=== PATIENT | male | born 1980 | race Caucasian/White ===

== ENCOUNTER 2023-10-05 01:19 | Observation (INO) | payer OTHER ==
[2023-10-05 01:58] LABS: BASOPHILS % (AUTO) 0.4 %; EOSINOPHILS # (AUTO) 0.2 10^3/uL (0.0-0.7); HGB - HEMOGLOBIN 14.4 g/dL (14.0-18.0); LYMPHOCYTES # (AUTO) 1.6 10^3/uL (1.5-3.5); LYMPHOCYTES % (AUTO) 15.5 %; MEAN CORPUSCULAR HEMOGLOBIN 26.7 pg (27.0-31.0); MEAN CORPUSCULAR VOLUME 83.5 fL (80.0-94.0); MEAN PLATELET VOLUME 9.8 fL (7.4-11.4); MONOCYTES # (AUTO) 0.9 10^3/uL (0.0-1.0); MONOCYTES % (AUTO) 8.9 %; NEUTROPHILS # (AUTO) 7.6 10^3/uL (1.5-6.6); NEUTROPHILS % (AUTO) 72.8 %; PLT - PLATELET COUNT 225 10^3/uL (130-450); RED BLOOD COUNT 5.39 10^6/uL (4.70-6.10); RED CELL DISTRIBUTION WIDTH 14.2 % (12.0-15.0); WHITE BLOOD COUNT 10.5 x10^3/uL (4.8-10.8)
[2023-10-05 02:07] LABS: RAPID STREP SCREEN Negative (Negative)
[2023-10-05 02:13] LABS: BILIRUBIN,URINE NEGATIVE (NEGATIVE); GLUCOSE, URINE (UA) NEGATIVE (NEGATIVE); KETONES,URINE (UA) 15 mg/dL (NEGATIVE); LEUKOCYTE ESTERASE, URINE NEGATIVE (NEGATIVE); NITRITE,URINE NEGATIVE (NEGATIVE); OCCULT BLOOD,URINE NEGATIVE (NEGATIVE); PH,URINE 5.5 PH (5.0-7.5); PROTEIN,URINE NEGATIVE (NEGATIVE); UROBILINOGEN,URINE 0.2 (NORMAL) E.U./dL (NORMAL)
[2023-10-05 02:15] LABS: CLARITY,URINE CLEAR (CLEAR)
--- NOTE | 2023-10-05 02:17 | ED Physician Documentation ---
PD HPI ABD PAIN - Stated complaint Stated Complaint: ABD PX/SORE THROAT - Chief complaint Chief Complaint: Heent - History obtained from History obtained from: Patient - Additional information Additional information: HPI from patient. Patient complains of abdominal pain since yesterday, gradual onset without an inciting event. The pain was initially periumbilical, but it has spread to involve the lower abdomen, more notable on the right lower quadrant than left. The pain is worse with movement, palpation. He denies fever. He denies history of similar symptoms. He has never had any abdominal surgery. He has had some nausea but no vomiting. Denies diarrhea, constipation. He also notes sore throat with odynphagia which also began yesterday and has been steadily progressive. Review of Systems Constitutional: denies: Fever, Chills, Sweats Nose: denies: Congestion Throat: reports: Sore throat Cardiac: reports: Reviewed and negative Respiratory: reports: Reviewed and negative GI: reports: Abdominal Pain, Nausea. denies: Vomiting, Constipation, Diarrhea, Hematemesis, Bloody / black stool : denies: Dysuria, Frequency Musculoskeletal: denies: Back pain PD PAST MEDICAL HISTORY - Past Medical History Past Medical History: No - Past Surgical History Past Surgical History: Yes HEENT: Tonsil/Adenoidectomy - Present Medications Home Medications: Ambulatory Orders Medication Instructions Recorded Confirmed No Known Home Medications 10/05/23 10/05/23 - Allergies Allergies/Adverse Reactions: Allergies Allergy/AdvReac Type Severity Reaction Status Date / Time No Known Drug Allergies Allergy Verified 10/05/23 01:29 - Social History Does the pt smoke?: No Smoking Status: Never smoker Does the pt drink ETOH?: No Does the pt have substance abuse?: No - Immunizations Immunizations are current?: Yes - POLST Patient has POLST: No PD ED PE NORMAL - Vitals Vital signs reviewed: Yes - General General: Alert and oriented X 3, No acute distress, Well developed/nourished - HEENT HEENT: Moist mucous membranes - Cardiac Cardiac: RRR, No murmur - Respiratory Respiratory: No respiratory distress, Clear bilaterally - Abdomen Abdomen: Soft, Non distended PD ED PE EXPANDED - Abdomen Abdomen: Tender to palpation (TTP periumbilicus and across lower abdomen with voluntary guarding, no rebound) Results - Vitals Vitals: Vital Signs - 24 hr 10/05/23 10/05/23 01:25 04:15 Temperature 37.2 C Heart Rate 101 H 99 Respiratory 16 16 Rate Blood Pressure 176/106 H 175/104 H O2 Saturation 100 96 Oxygen O2 Source Room air - Labs Labs: Laboratory Tests 10/05/23 10/05/23 10/05/23 01:30 01:35 01:45 WBC 10.5 RBC 5.39 Hgb 14.4 Hct 45.0 MCV 83.5 MCH 26.7 L MCHC 32.0 RDW 14.2 Plt Count 225 MPV 9.8 Neut # (Auto) 7.6 H Lymph # (Auto) 1.6 [place] # (Auto) 0.9 Eos # (Auto) 0.2 Baso # (Auto) 0.0 Absolute Nucleated RBC 0.00 Nucleated RBC % 0.0 Sodium Potassium Chloride Carbon Dioxide Anion Gap BUN Creatinine Estimated GFR (MDRD) Glucose Calcium Total Bilirubin AST ALT Alkaline Phosphatase Total Protein Albumin Globulin Albumin/Globulin Ratio Lipase Urine Color YELLOW Urine Clarity CLEAR Urine pH 5.5 Ur Specific [place] 1.025 Urine Protein NEGATIVE Urine Glucose (UA) NEGATIVE Urine Ketones 15 H Urine Occult Blood NEGATIVE Urine Nitrite NEGATIVE Urine Bilirubin NEGATIVE Urine Urobilinogen 0.2 (NORMAL) Ur Leukocyte Esterase NEGATIVE Ur Microscopic Review NOT INDICATED Urine Culture Comments NOT INDICATED Group A Strep Rapid Negative 10/05/23 01:45 WBC RBC Hgb Hct MCV MCH MCHC RDW Plt Count MPV Neut # (Auto) Lymph # (Auto) [place] # (Auto) Eos # (Auto) Baso # (Auto) Absolute Nucleated RBC Nucleated RBC % Sodium 137 Potassium 3.7 Chloride 102 Carbon Dioxide 27 Anion Gap 8.0 BUN 16 Creatinine 1.1 Estimated GFR (MDRD) 72 L Glucose 147 H Calcium 9.5 Total Bilirubin 0.7 AST 26 ALT 45 Alkaline Phosphatase 76 Total Protein 7.0 Albumin 4.5 Globulin 2.5 Albumin/Globulin Ratio 1.8 Lipase 18 Urine Color Urine Clarity Urine pH Ur Specific [place] Urine Protein Urine Glucose (UA) Urine Ketones Urine Occult Blood Urine Nitrite Urine Bilirubin Urine Urobilinogen Ur Leukocyte Esterase Ur Microscopic Review Urine Culture Comments Group A Strep Rapid - Rads (name of study) CT A/P with IV contrast Relevant Findings:: Prelim report reviewed, See rad report PD Medical Decision Making - ED course Complexity details: reviewed results, re-evaluated patient, considered differential, d/w patient ED course: Unremarkable CBC, ER abdominal panel. Rapid strep test is negative. CT of the abdomen/pelvis is notable for diverticulitis of proximal sigmoid colon with surrounding phlegmon, no abscess. Radiologist makes note of also "possible microperforation may be present." Radiologist notes "normal appendix". Although the patient is in no apparent distress both on my initial exam as well as reevaluation after the tests are resulted, he does have a moderate amount of tenderness to palpation in the periumbilical area as well as across the lower abdomen. I discussed this case including the test results with Dr. Hicks (on-call surgeon for [facility]). He recommends admit to medicine service and surgery can be consulted. D/W [facility] who will admit to medical service [facility]. Patient given IV toradol, cipro, and flagyl in ED. Departure - Departure Disposition: ED Place in Observation Clinical Impression: Diverticulitis of gastrointestinal tract Condition: Good
[2023-10-05] MEDS ORDERED: iohexoL-300 100 ML VIAL ONE (02:46)
[2023-10-05 02:47] LABS: ALBUMIN 4.5 g/dL (3.2-5.5); ALBUMIN/GLOBULIN RATIO 1.8 (1.0-2.2); BILIRUBIN,TOTAL 0.7 mg/dL (0.2-1.0); CALCIUM 9.5 mg/dL (8.5-10.3); CREATININE 1.1 mg/dL (0.6-1.3); POTASSIUM 3.7 mmol/L (3.5-4.5)
[2023-10-05] MEDS: iohexoL-300 100 ML VIAL IVP ONE (03:09)
--- NOTE | 2023-10-05 04:09 | HISTORY & PHYSICAL EXAMINATION ---
Chief Complaint - Chief Complaint Chief Complaint: Abdo pain History of Present Illness - Admitted From Admitted From:: ER - History Obtained From Records Reviewed: Yes History obtained from: Pt, staff, chart Exam Limitations: Virtual exam - History of Present Illness HPI Comment/Other: H&P was conducted via video remotely, using Access Cart. [place] in [place] Physician [place] in [place]. No one is at bedside. 43 yo M with no PMH presented to the ER with c/o 2 day h/o abdominal pain. Pt stayed at cabin with family this weekend for Mother's Day. His family members had URI symptoms, cough. Yesterday AM, he noticed abdominal pain around his belly button, starting gradually, then increased and radiated to lower abdomen, +pressure. Abdo pain worse with having BM or urinating, +Nausea, no vomiting. +BM: normal. No h/o pain like this. No h/o abdominal pain. +subj F/C. +sore throat with odynophagia. No CP/SOB/cough. In the ER, Glc 147, Throat: Strep cx neg CT Abdo: Acute Diverticulitis proximal sigmoid with surrounding phlegmon, possible microperforation ER Provider D/W Dr. Hicks, General Surgery, who recommends admit to medicine service and surgery can be consulted. Pt was given IVF, Toradol, Cipro/Flagyl in the ER. History - Past Medical History MRSA Hx?: No - Past Surgical History HEENT: reports: Tonsil/Adenoidectomy - POLST Patient has POLST: No Meds/Allgy - Home Medications Home Medications: Ambulatory Orders Medication Instructions Recorded Confirmed No Known Home Medications 10/05/23 10/05/23 - Allergies Allergies/Adverse Reactions: Allergies Allergy/AdvReac Type Severity Reaction Status Date / Time No Known Drug Allergies Allergy Verified 10/05/23 01:29 Review of Systems - All Other Systems All Other Systems: reports: Reviewed and negative Exam - Vital Signs Reviewed Vital Signs: Yes Vital Signs: Vital Signs x48h Temp Pulse Resp BP Pulse Ox 10/05/23 01:25 37.2 C 101 H 16 176/106 H 100 - Physical Exam General Appearance: positive: No acute distress, Alert Eyes Bilateral: positive: EOMI, No scleral icterus Respiratory: positive: Other (Access cart stethoscope not working; per ER Provider: CTA B/L) Cardiovascular: positive: Other (Access cart stethoscope not working; per ER Provider: RRR, no murmurs) Abdomen: positive: Other (per ER Provider: Tender to palpation (TTP periumbilicus and across lower abdomen with voluntary guarding, no rebound)) Extremities: positive: Other (per ER Provider: moves all extrem, no edema) Conclusion/Plan - Problem List (1) Diverticulitis of gastrointestinal tract Conclusion/Plan: Acute Diverticulitis Abdominal Pain Nausea -CT Abdo: Acute Diverticulitis proximal sigmoid with surrounding phlegmon, possible microperforation -ER Provider D/W Dr. Hicks, General Surgery, who recommends admit to medicine service and surgery can be consulted. -Pt was given IVF, Toradol, Cipro/Flagyl in the ER. -admit to Obs/MedSurg -IVF -clear liquid diet; advance as tolerated -anti-emetics PRN -continue Cipro/Flagyl -pain meds PRN -mgmt per General Surgery Odynophagia Sore throat -Throat: Strep cx neg -Resp panel ordered Hyperglycemia -Glc 147 -check Hgba1c VTE Prophylaxis: Lovenox Code Status: Full Code ~Martha Gonsales MD Hospitalist - Lab Results Lab results reviewed: Yes Fish Bones: 10/05/23 01:45 10/05/23 01:45
[2023-10-05] MEDS: KETOROLAC 30 MG/ML VIAL IVP STA (04:21)
[2023-10-05] MEDS: SODIUM CHLORIDE 0.9% 1,000 ML IV STA (04:22)
[2023-10-05] MEDS: CIPROFLOXACIN 400 MG/200 ML 400 MG/200 ML BAG IV STA (04:25)
[2023-10-05] MEDS ORDERED: ONDANSETRON ODT 4 MG TABLET TL PRN (04:39)
[2023-10-05] MEDS ORDERED: SODIUM CHLORIDE FLUSH 0.9% 10 ML SYRINGE IVP PRN (04:39)
[2023-10-05] MEDS ORDERED: ONDANSETRON 4 MG/2 ML VIAL IVP PRN (04:39)
[2023-10-05] MEDS ORDERED: LIDOCAINE VISCOUS 2% 15 ML UDC MM PRN (04:49)
[2023-10-05] MEDS: metroNIDAZOLE 500 MG/100 ML 500 MG/100 ML BAG IV ONE (05:28)
[2023-10-05 06:00] LABS: BASOPHILS % (AUTO) 0.3 %; EOSINOPHILS # (AUTO) 0.3 10^3/uL (0.0-0.7); EOSINOPHILS % (AUTO) 2.6 %; HCT - HEMATOCRIT 43.6 % (42.0-52.0); LYMPHOCYTES # (AUTO) 1.6 10^3/uL (1.5-3.5); MEAN CORPUSCULAR HEMOGLOBIN 26.8 pg (27.0-31.0); MEAN CORPUSCULAR HGB CONC 32.1 g/dL (32.0-36.0); MEAN CORPUSCULAR VOLUME 83.5 fL (80.0-94.0); MEAN PLATELET VOLUME 10.1 fL (7.4-11.4); MONOCYTES % (AUTO) 10.1 %; NEUTROPHILS # (AUTO) 6.6 10^3/uL (1.5-6.6); NEUTROPHILS % (AUTO) 69.7 %; PLT - PLATELET COUNT 227 10^3/uL (130-450); RED BLOOD COUNT 5.22 10^6/uL (4.70-6.10); RED CELL DISTRIBUTION WIDTH 14.1 % (12.0-15.0); WHITE BLOOD COUNT 9.5 x10^3/uL (4.8-10.8)
[2023-10-05 06:22] LABS: ALBUMIN 4.2 g/dL (3.2-5.5); ALBUMIN/GLOBULIN RATIO 1.4 (1.0-2.2); BILIRUBIN,TOTAL 0.7 mg/dL (0.2-1.0); CALCIUM 9.1 mg/dL (8.5-10.3); POTASSIUM 3.5 mmol/L (3.5-4.5); TOTAL PROTEIN 7.2 g/dL (6.4-8.9)
[2023-10-05] MEDS: LACTATED RINGERS 1,000 ML IV SCH (06:22)
[2023-10-05 06:32] LABS: B. PARAPERTUSSIS- RESP PCR PAN NOT DETECTED; B. PERTUSSIS- RESP PCR PANEL NOT DETECTED; C. PNEUMONIAE- RESP PCR PANEL NOT DETECTED; CORONAVIRUS 229E-RESP PCR NOT DETECTED; CORONAVIRUS HKU1-RESP PCR NOT DETECTED; CORONAVIRUS NL63-RESP PCR NOT DETECTED; CORONAVIRUS OC43-RESP PCR NOT DETECTED; HUMAN METAPNEUMOVIRUS NOT DETECTED; INFLUENZA A- RESP PCR PANEL NOT DETECTED; INFLUENZA B - RESP PCR PANEL NOT DETECTED; M. PNEUMONIAE- RESP PCR PANEL NOT DETECTED; PARAINFLUENZA VIRUS 1 NOT DETECTED; PARAINFLUENZA VIRUS 2 NOT DETECTED; PARAINFLUENZA VIRUS 3 NOT DETECTED; PARAINFLUENZA VIRUS 4 NOT DETECTED; RHINOVIRUS/ENTEROVIRUS NOT DETECTED; RSV- RESP PCR PANEL NOT DETECTED; SARS-CoV-2 -RESP PCR PANEL NOT DETECTED
--- NOTE | 2023-10-05 07:16 | CT Report ---
PROCEDURE: Abdomen/Pelvis W INDICATIONS: abd. pain CONTRAST: 100 ML OMNI 300 TECHNIQUE: After the administration of intravenous contrast, a CT scan of the abdomen and pelvis was performed. Images were recorded and evaluated at appropriate window settings. Reformats: coronal and sagittal. F or radiation dose reduction, the following was used: automated exposure control, adjustment of mA and /or kV according to patient size. COMPARISON: None. FINDINGS: Image quality: Diagnostic. Lower chest: Unremarkable. Liver: No solid mass. Very mild diffuse hepatic steatosis. Gallbladder: No radiopaque stones or wall thickening. Biliary tree: No intrahepatic or extrahepatic dilation, accounting for age. Spleen: No splenomegaly. Pancreas: No pancreatic ductal dilation. Adrenals: No adrenal nodule. Kidneys and ureters: No hydronephrosis. No renal cystic lesion which requires follow up. No solid mas s. Stomach, bowel and peritoneum: Sigmoid diverticulosis with associated diverticulitis. There is bowel wall thickening and there is inflammatory change in the subjacent fat. There may be very early phlegm on formation. Question tiny amount of subjacent air suggesting possible minimal changes of microperfo ration. No abscess. Lymph nodes: No central or retroperitoneal adenopathy. Vessels: No infrarenal aortic aneurysm. Patent portal vein. PELVIS Reproductive organs: Unremarkable. Bladder: No abnormal wall thickening, accounting for underdistention. Pelvic lymph nodes: No pelvic adenopathy by size criteria. Bones: No aggressive osseous abnormality. Other: No significant ventral or inguinal hernia. IMPRESSION: 1. Acute sigmoid diverticulitis with questionable microperforation and question of very early phlegmo n formation. Comment: Recommend direct visualization utilizing colonoscopy after acute symptomatology resolves to exclude underlying lesion Findings are concordant with preliminary interpretation provided by [facility]. Reviewed by: Eduardo Donaldson MD on 10/05/2023 7:14 AM PDT Approved by: Eduardo Donaldson MD on 10/05/2023 7:14 AM PDT Station ID: [id number]
[2023-10-05] MEDS: ENOXAPARIN 40 MG/0.4 ML SYRINGE SUBQ SCH (09:23)
[2023-10-05] MEDS: SODIUM CHLORIDE FLUSH 0.9% 10 ML SYRINGE IVP SCH (09:23)
[2023-10-05] MEDS: LIDOCAINE VISCOUS 2% 100 ML BOTTLE MM PRN (09:27)
--- NOTE | 2023-10-05 09:54 | PHARMACY PROGRESS NOTE ---
- Best Possible Medication History Admit Date and Time: 10/05/23 0439 Processed by: Nursing Medications reviewed in ED?: Yes Medication History completed: Yes Patient Interview: Completed As the person ultimately responsible for medication therapy, providers are able to order a medication from an existing home medication list in [facility] via the "Reconcile Routine" prior to Confirmation of that medication by legal support specialist. Such practice is discouraged except when the physician, in their clinical judgment, deems that a medical need exists for a medication without regard to previous use.
[2023-10-05 09:57] LABS: ESTIMATED AVERAGE GLUCOSE 120 mg/dL (70-100); HEMOGLOBIN A1c% 5.8 % (4.27-6.07)
[2023-10-05] MEDS: metroNIDAZOLE 500 MG/100 ML 500 MG/100 ML BAG IV SCH (12:04)
[2023-10-05] MEDS: BENZOCAINE/MENTHOL LOZENGE MM PRN (14:00)
[2023-10-05] MEDS: CIPROFLOXACIN 400 MG/200 ML 400 MG/200 ML BAG IV SCH (16:13)
[2023-10-05] MEDS: oxyCODONE 5 MG TABLET PO PRN (16:20)
[2023-10-06] MEDS: ACETAMINOPHEN 325 MG TABLET PO PRN (01:13)
[2023-10-06] MEDS: hydrALAZINE INJ 20 MG/ML VIAL IVP PRN (01:14)
[2023-10-06] MEDS: PHENOL THROAT SPRAY 177 ML MM PRN (01:38)
[2023-10-06 05:36] LABS: BASOPHILS % (AUTO) 0.5 %; EOSINOPHILS # (AUTO) 0.2 10^3/uL (0.0-0.7); EOSINOPHILS % (AUTO) 2.6 %; HCT - HEMATOCRIT 42.8 % (42.0-52.0); HGB - HEMOGLOBIN 13.7 g/dL (14.0-18.0); LYMPHOCYTES # (AUTO) 1.5 10^3/uL (1.5-3.5); LYMPHOCYTES % (AUTO) 19.8 %; MEAN CORPUSCULAR HEMOGLOBIN 26.7 pg (27.0-31.0); MEAN CORPUSCULAR VOLUME 83.3 fL (80.0-94.0); MONOCYTES % (AUTO) 12.3 %; NEUTROPHILS % (AUTO) 64.4 %; PLT - PLATELET COUNT 216 10^3/uL (130-450); RED BLOOD COUNT 5.14 10^6/uL (4.70-6.10); WHITE BLOOD COUNT 7.7 x10^3/uL (4.8-10.8)
[2023-10-06 05:55] LABS: ALBUMIN 3.9 g/dL (3.2-5.5); ALBUMIN/GLOBULIN RATIO 1.3 (1.0-2.2); BILIRUBIN,TOTAL 0.8 mg/dL (0.2-1.0); CALCIUM 8.8 mg/dL (8.5-10.3); CREATININE 0.9 mg/dL (0.6-1.3); POTASSIUM 3.7 mmol/L (3.5-4.5); TOTAL PROTEIN 6.9 g/dL (6.4-8.9)
--- NOTE | 2023-10-06 09:05 | PROVIDER PROGRESS NOTE ---
Assessment/Plan - Problem List (1) Diverticulitis of gastrointestinal tract Assessment/Plan: symptom Normal WBC Continue cipro, flagyl Advance diet if tolerate, plan to discharge to home on oral antibiotic - Current Meds Current Meds: Current Medications Generic Name Dose Route Start Last Admin Trade Name Freq PRN Reason Stop Dose Admin Acetaminophen 650 mg 10/05/23 04:39 10/06/23 01:13 Acetaminophen 325 Mg Tablet PO 650 mg Q4HR PRN Administration Pain 1 to 4, or Fever Enoxaparin Sodium 40 mg 10/05/23 09:00 10/05/23 09:23 Enoxaparin 40 Mg/0.4 Ml Syringe SUBQ 40 mg DAILY ERLINDA Administration Hydralazine HCl 10 mg 10/05/23 20:27 10/06/23 01:14 Hydralazine Inj 20 Mg/Ml Vial IVP 10 mg Q6H PRN Administration Hypertension Lactated Ringer's 1,000 mls @ 100 mls/hr 10/05/23 05:00 10/06/23 01:38 Lr IV 100 mls/hr .Q10H ERLINDA Administration Ciprofloxacin 400 mg in 200 mls @ 200 mls/hr 10/05/23 17:00 10/06/23 07:56 Cipro 400 Mg/200 Ml IV Infused Q12H ERLINDA Infusion Metronidazole 500 mg in 100 mls @ 100 mls/hr 10/05/23 12:00 10/06/23 05:05 Flagyl 500 Mg/100 Ml IV Infused Q8H ERLINDA Infusion Oxycodone HCl 5 mg 10/05/23 04:39 10/06/23 01:13 Oxycodone 5 Mg Tablet PO 5 mg Q6HR PRN Administration Pain 8 to 10 Phenol/Menthol 1 sprays 10/06/23 01:06 10/06/23 01:38 Phenol Throat [place] 177 Ml MM 1 sprays Q4HR PRN Administration Mouth Sore Pain Sodium Chloride 10 ml 10/05/23 09:00 10/06/23 01:15 Sodium Chloride Flush 0.9% 10 Ml Syringe IVP 10 ml 0100,0900,1700 ERLINDA Administration Throat Lozenges 1 lozenge 10/05/23 13:25 10/05/23 14:00 Benzocaine/Menthol Lozenge MM 1 lozenge Q2HR PRN Administration Mouth Sore Pain - Lab Result [place] Diagrams: 10/06/23 05:07 10/06/23 05:07 Subjective - Subjective Patient Reports: Feeling Better Objective Vital Signs: Vital Signs - 24 hr 10/05/23 10/05/23 10/06/23 15:35 20:15 00:54 Temperature 37.3 C 37.3 C 38.0 C H Heart Rate [ 82 83 88 Brachial] Respiratory 18 20 16 Rate Blood Pressure Blood Pressure 159/102 H 160/101 H 166/102 H [Right Brachial artery] O2 Saturation 98 96 95 10/06/23 10/06/23 10/06/23 01:14 01:15 01:20 Temperature Heart Rate [ 89 93 Brachial] Respiratory Rate Blood Pressure 166/102 H Blood Pressure 160/103 H 161/102 H [Right Brachial artery] O2 Saturation 10/06/23 10/06/23 10/06/23 01:25 01:43 01:44 Temperature 37.1 C Heart Rate [ 96 Brachial] Respiratory Rate Blood Pressure 140/95 H Blood Pressure 149/103 H [Right Brachial artery] O2 Saturation 10/06/23 10/06/23 10/06/23 02:05 02:25 02:35 Temperature Heart Rate [ 95 Brachial] Respiratory Rate Blood Pressure Blood Pressure 140/95 H 158/94 H 145/91 H [Right Brachial artery] O2 Saturation 10/06/23 10/06/23 03:00 08:00 Temperature 37.1 C Heart Rate [ 84 Brachial] Respiratory 20 Rate Blood Pressure Blood Pressure 142/94 H 141/94 H [Right Brachial artery] O2 Saturation 96 Oxygen O2 Source Room air I&O (Last 24 Hrs): Intake and Output Totals x24h 10/04/23 10/05/23 10/06/23 23:59 23:59 23:59 Intake Total 3207.5 2401.667 Balance 3207.5 2401.667 General: Alert, Oriented x3 HEENT: PERRLA Neck: Supple Neuro: Alert, Non Focal Cardiovascular: Regular rate, Normal S1, Normal S2 Respiratory: No respiratory distress Abdomen: Normal bowel sounds, Soft Extremities: No cyanosis, No edema Skin: No rashes - Results Results: Laboratory Results WBC 7.7 x10^3/uL (4.8-10.8) 10/06/23 05:07 RBC 5.14 10^6/uL (4.70-6.10) 10/06/23 05:07 Hgb 13.7 g/dL (14.0-18.0) L 10/06/23 05:07 Hct 42.8 % (42.0-52.0) 10/06/23 05:07 MCV 83.3 fL (80.0-94.0) 10/06/23 05:07 MCH 26.7 pg (27.0-31.0) L 10/06/23 05:07 MCHC 32.0 g/dL (32.0-36.0) 10/06/23 05:07 RDW 14.0 % (12.0-15.0) 10/06/23 05:07 Plt Count 216 10^3/uL (130-450) 10/06/23 05:07 MPV 10.0 fL (7.4-11.4) 10/06/23 05:07 Neut # (Auto) 5.0 10^3/uL (1.5-6.6) 10/06/23 05:07 Lymph # (Auto) 1.5 10^3/uL (1.5-3.5) 10/06/23 05:07 [place] # (Auto) 1.0 10^3/uL (0.0-1.0) 10/06/23 05:07 Eos # (Auto) 0.2 10^3/uL (0.0-0.7) 10/06/23 05:07 Baso # (Auto) 0.0 10^3/uL (0.0-0.1) 10/06/23 05:07 Absolute Nucleated RBC 0.00 x10^3/uL 10/06/23 05:07 Nucleated RBC % 0.0 /100WBC 10/06/23 05:07 Sodium 138 mmol/L (135-145) 10/06/23 05:07 Potassium 3.7 mmol/L (3.5-4.5) 10/06/23 05:07 Chloride 106 mmol/L (101-111) 10/06/23 05:07 Carbon Dioxide 25 mmol/L (21-32) 10/06/23 05:07 Anion Gap 7.0 (6-13) 10/06/23 05:07 BUN 8 mg/dL (6-20) 10/06/23 05:07 Creatinine 0.9 mg/dL (0.6-1.3) 10/06/23 05:07 Estimated GFR (MDRD) 91 (>89) 10/06/23 05:07 Glucose 104 mg/dL (74-104) 10/06/23 05:07 Estimat Average Glucose 120 mg/dL (70-100) H 10/05/23 05:44 Hemoglobin A1c % 5.8 % (4.27-6.07) 10/05/23 05:44 Calcium 8.8 mg/dL (8.5-10.3) 10/06/23 05:07 Total Bilirubin 0.8 mg/dL (0.2-1.0) 10/06/23 05:07 AST 18 IU/L (10-42) 10/06/23 05:07 ALT 30 IU/L (10-60) 10/06/23 05:07 Alkaline Phosphatase 70 IU/L (42-121) 10/06/23 05:07 Total Protein 6.9 g/dL (6.4-8.9) 10/06/23 05:07 Albumin 3.9 g/dL (3.2-5.5) 10/06/23 05:07 Globulin 3.0 g/dL (2.1-4.2) 10/06/23 05:07 Albumin/Globulin Ratio 1.3 (1.0-2.2) 10/06/23 05:07 Lipase 18 U/L (11-82) 10/05/23 01:45 Urine Color YELLOW 10/05/23 01:35 Urine Clarity CLEAR (CLEAR) 10/05/23 01:35 Urine pH 5.5 PH (5.0-7.5) 10/05/23 01:35 Ur Specific [place] 1.025 (1.002-1.030) 10/05/23 01:35 Urine Protein NEGATIVE mg/dL (NEGATIVE) 10/05/23 01:35 Urine Glucose (UA) NEGATIVE mg/dL (NEGATIVE) 10/05/23 01:35 Urine Ketones 15 mg/dL (NEGATIVE) H 10/05/23 01:35 Urine Occult Blood NEGATIVE (NEGATIVE) 10/05/23 01:35 Urine Nitrite NEGATIVE (NEGATIVE) 10/05/23 01:35 Urine Bilirubin NEGATIVE (NEGATIVE) 10/05/23 01:35 Urine Urobilinogen 0.2 (NORMAL) E.U./dL (NORMAL) 10/05/23 01:35 Ur Leukocyte Esterase NEGATIVE (NEGATIVE) 10/05/23 01:35 Ur Microscopic Review NOT INDICATED 10/05/23 01:35 Urine Culture Comments NOT INDICATED 10/05/23 01:35 Nasal Adenovirus (PCR) NOT DETECTED 10/05/23 05:02 Nasal B. parapertussis DNA (PCR) NOT DETECTED 10/05/23 05:02 Nasal Coronavir 229E PCR NOT DETECTED 10/05/23 05:02 Nasal Coronavir HKU1 PCR NOT DETECTED 10/05/23 05:02 Nasal Coronavir NL63 PCR NOT DETECTED 10/05/23 05:02 Nasal Coronavir OC43 PCR NOT DETECTED 10/05/23 05:02 Nasal Enterovir/Rhinovir PCR NOT DETECTED 10/05/23 05:02 Nasal Influenza B PCR NOT DETECTED 10/05/23 05:02 Nasal Influenza A PCR NOT DETECTED 10/05/23 05:02 Nasal Parainfluen 1 PCR NOT DETECTED 10/05/23 05:02 Nasal Parainfluen 2 PCR NOT DETECTED 10/05/23 05:02 Nasal Parainfluen 3 PCR NOT DETECTED 10/05/23 05:02 Nasal Parainfluen 4 PCR NOT DETECTED 10/05/23 05:02 Nasal RSV (PCR) NOT DETECTED 10/05/23 05:02 Nasal B.pertussis DNA PCR NOT DETECTED 10/05/23 05:02 Nasal C.pneumoniae (PCR) NOT DETECTED 10/05/23 05:02 [place] Human Metapneumo PCR NOT DETECTED 10/05/23 05:02 Nasal M.pneumoniae (PCR) NOT DETECTED 10/05/23 05:02 Nasal SARS-CoV-2 (PCR) NOT DETECTED 10/05/23 05:02 Group A Strep Rapid Negative (Negative) 10/05/23 01:30 Sepsis Event Note (H) - Evaluation Current Stage of Sepsis: Ruled out ABX Reporting Has patient been on IV antibiotics over the past 48 hours?: Yes
[2023-10-06 16:19] VITALS: O2SAT 97
[2023-10-06] MEDS: amLODIPine 5 MG TABLET PO SCH (16:45)
[2023-10-06] MEDS: BUTALB/ACETAM/CAFF 50/325/40MG TABLET PO PRN (16:45)
--- NOTE | 2023-10-06 17:08 | Discharge Plan ---
Discharge Plan Problem Reviewed?: Yes Disposition: Home, Self Care Condition: Stable Prescriptions: Ondansetron Odt [Zofran Odt] 4 mg TL Q6HR PRN 5 Days #7 tab PRN Reason: Nausea / Vomiting Ciprofloxacin [Cipro] 500 mg PO BID 9 Days #36 tab metroNIDAZOLE [Flagyl] 500 mg PO TIDWM 9 Days #27 tab Metoprolol Tartrate [Lopressor] 25 mg PO BID 30 Days #60 tab amLODIPine [Norvasc] 5 mg PO DAILY 30 Days #30 tab Diet: Soft Activity Restrictions: No Restrictions Shower Restrictions: No Driving Restrictions: No Weight Bearing: Full Weight Instruction Topics: Diverticulitis Dc, High Blood Pressure Health Concerns: You have diverticulitis, received iv cipro and flagyl during hospital stay, plea se continue with oral antibiotic, eat soft food for the next two weeks, follow up with your PCP Plan of Treatment: continue antibiotic Care Goals: Abdominal pain resolved, tolerate diet Assessment: Medically stable for discharge Additional Instructions or Follow Up instructions: Your blood pressure has been high during hospital stay, peak Bp 170/100, Metoprolol and amlodipine given. please check your Bp at home, if your Bp is still elevated after diverticulitis resolved, you may need on emt intermediate anti hypertensive medication. Please eat low salt diet at this point No Smoking: If you smoke, Please STOP! Call for help.
--- NOTE | 2023-10-06 18:11 | DISCHARGE SUMMARY ---
"Discharge Summary Admit Date: 10/05/23 Discharge Date: 10/06/23 Discharging Provider: Sai Norwood Code Status: Attempt Resuscitation Condition at Discharge: Stable Discharge Disposition: 01 Home, Self Care - DIAGNOSES Admission Diagnoses: diverticulitis Discharge Diagnoses with Status of Each Condition: diverticulitis, improved Elevated blood pressure, stable - HPI History of Present Illness: H&P was conducted via video remotely, using Access Cart. Patient is in [place]. Physician is in [place]. No one is at bedside. 43 yo M with no PMH presented to the ER with c/o 2 day h/o abdominal pain. Pt stayed at cabin with family this weekend for Mother's Day. His family members had URI symptoms, cough. Yesterday AM, he noticed abdominal pain around his belly button, starting gradually, then increased and radiated to lower abdomen, +pressure. Abdo pain worse with having BM or urinating, +Nausea, no vomiting. +BM: normal. No h/o pain like this. No h/o abdominal pain. +subj F/C. +sore throat with odynophagia. No CP/SOB/cough. In the ER, Glc 147, Throat: Strep cx neg CT Abdo: Acute Diverticulitis proximal sigmoid with surrounding phlegmon, possible microperforation ER Provider D/W Dr. Hicks, General Surgery, who recommends admit to medicine service and surgery can be consulted. Pt was given IVF, Toradol, Cipro/Flagyl in the ER. - CONSULTS | PROCEDURES Consultations: Surgery team consulted, recommends conservative treatment - HOSPITAL COURSE Hospital Course: After admission, patient was on bowel rest, given iv fluid, antiemisis, continue giving cipro, flagyl iv. Abdominal pain improved, able to tolerate diet. Patient has elevated bp with peak of 170/100, HR 90s, was given metoprolol and amlodipine, patient reported that he was told he had high bp before. Not on treatment. Patient also had right sided jaw pain and diffuse headache, did not response to Tylenol, but responded to Fioricet. Patient has no leukocytosis, CT abdomen only showed possible micro perforation. with noncomplicated diverticulitis, patient is discharged on oral cipro and flagyl for 9 days to complete 10 days treatment course. - ALLERGIES Allergies/Adverse Reactions: Allergies Allergy/AdvReac Type Severity Reaction Status Date / Time No Known Drug Allergies Allergy Verified 10/05/23 01:29 - MEDICATIONS Home Medications: Ambulatory Orders Medication Instructions Recorded Confirmed No Known Home Medications 10/05/23 10/05/23 Ciprofloxacin [Cipro] 500 mg PO BID 9 Days #36 tab 10/06/23 Metoprolol Tartrate [Lopressor] 25 mg PO BID 30 Days #60 tab 10/06/23 Ondansetron Odt [Zofran Odt] 4 mg TL Q6HR PRN 5 Days #7 tab 10/06/23 amLODIPine [Norvasc] 5 mg PO DAILY 30 Days #30 tab 10/06/23 metroNIDAZOLE [Flagyl] 500 mg PO TIDWM 9 Days #27 tab 10/06/23 - PHYSICAL EXAM AT DISCHARGE General Appearance: positive: No acute distress, Alert Eyes Bilateral: positive: PERRL, EOMI ENT: positive: No signs of dehydration, Other (right jaw mild tender) Neck: positive: No JVD. negative: Lymphadenopathy (R), Lymphadenopathy (L) Cardiovascular: positive: Regular rate & rhythm Abdomen: positive: Nml bowel sounds, No distention, Tenderness (mild). negative: Guarding, Rebound Skin: positive: Color nml, Warm, Dry Extremities: positive: Full ROM, No pedal edema - LABS Result Diagrams: 10/06/23 05:07 10/06/23 05:07 - DIAGNOSTIC IMAGING Diagnostic Imaging Results: Final report reviewed - SEPSIS Current Stage of Sepsis: Ruled out - TIME SPENT Time Spent in Discharge (Minutes): 55"
[2023-10-06] MEDS: METOPROLOL TARTRATE 25 MG TABLET PO SCH (18:31)
[2023-10-06 18:33] VITALS: BP 169/102
[2023-10-06] MEDS ORDERED: METOPROLOL TARTRATE 25 MG TABLET PO SCH (21:00)
[2023-10-07] MEDS ORDERED: CIPROFLOXACIN 250 MG TABLET PO SCH (09:00)
[2023-10-07] MEDS ORDERED: metroNIDAZOLE 250 MG TABLET PO SCH (09:00)
== END 2023-10-06 18:45 | disposition home or self-care (01) ==
LOC: ED 01:19 → MS2 04:39
PROVIDERS: ADMIT Internal Medicine; ATTEND Internal Medicine
DX: K57.32 Diverticulitis of large intestine without perforation or abscess without bleeding (principal); J02.9 Acute pharyngitis, unspecified; R03.0 Elevated blood-pressure reading, without diagnosis of hypertension; R13.10 Dysphagia, unspecified; R73.9 Hyperglycemia, unspecified; Z11.52 Encounter for screening for COVID-19
CPT/HCPCS: 36415; 74177; 80053; 81003; 83036; 83690; 85025; 87070; 87077; 87430; 87633; 96365; 96366; 96367; 96368; 96372; 96375; 96376; 99284; 99285; A9270; G0378; J1650; J7120; Q9967; 81001; 87086